=== PATIENT | male | born 1990 | race African-American/Black ===

== ENCOUNTER 2018-11-06 10:36 | Emergency (ER) | payer BC ==
[~2018-11-06] VITALS: Ht 185.4 cm; Wt 100.0 kg
[2018-11-06] MEDS ORDERED: IBUPROFEN 600MG TABLET PO ONE (12:45)
[2018-11-06 13:41] VITALS: BP 133/94
== END 2018-11-06 15:04 | disposition home or self-care (01) ==
LOC: ER 10:36
DX: M25.572 Pain in left ankle and joints of left foot (principal); M25.571 Pain in right ankle and joints of right foot; M79.671 Pain in right foot
CPT/HCPCS: 73610; 73630; 99283; Z7610